=== PATIENT | male | born 1945 | race African-American/Black ===

== ENCOUNTER 2024-05-08 11:10 | Emergency (ER) | payer OTHER, MEDICAID ==
[~2024-05-08] VITALS: Ht 170.2 cm; Wt 50.4 kg
[2024-05-08 11:16] VITALS: O2SAT 96
[2024-05-08 12:27] LABS: BASOPHILS % 0.6 % (0.0-2.0); EOSINOPHILS % 2.9 % (0.0-5.0); HEMATOCRIT. 31.8 % (42.0-52.0); HEMOGLOBIN. 10.6 g/dL (14.0-18.0); LYMPHOCYTES % 21.9 % (20.0-50.0); MEAN CORPUSCULAR HEMOGLOBIN 28.7 pg (28.0-32.0); MEAN CORPUSCULAR HGB CONC 33.4 g/dL (31.0-37.0); MEAN PLATELET VOLUME 7.2 fl (7.4-10.4); MONOCYTES % 11.5 % (2.0-8.0); NEUTROPHILS % 63.1 % (40.0-76.0); PLATELET 384 x1000/uL (130-400); RED CELL DISTRIBUTION WIDTH 14.7 % (11.6-14.6); WHITE BLOOD COUNT 7.2 x1000/uL (4.5-11.0)
[2024-05-08 12:38] LABS: CHLORIDE 101 mEq/L (98-107); POTASSIUM 4.4 mEq/L (3.5-5.1); SODIUM 133 mEq/L (136-145)
[2024-05-08 12:39] LABS: CARBON DIOXIDE 30 mEq/L (21-32)
[2024-05-08 12:40] LABS: CALCIUM 9.1 mg/dL (8.7-10.4)
[2024-05-08 12:41] LABS: PARTIAL THROMBOPLASTIN TIME 26.6 sec (23.4-31.0)
[2024-05-08 12:44] LABS: UREA NITROGEN BLOOD 18 mg/dL (9-23)
[2024-05-08 12:45] LABS: TROPONIN I HIGH SENSITIVITY 4 ng/L (3.0-53)
[2024-05-08 13:36] LABS: ETHANOL BLOOD < 10 mg/dL (<10); GLUCOSE 391 mg/dL (70-105)
[2024-05-08] MEDS: SODIUM CHLORIDE 0.9% 1,000 ML IV ONE (13:45)
[2024-05-08 14:10] LABS: TROPONIN I HIGH SENSITIVITY 4 ng/L (3.0-53)
[2024-05-08 14:14] LABS: CLARITY URINE TURBID (CLEAR); COLOR URINE YELLOW (YELLOW); GLUCOSE URINE 3+ (NEGATIVE); KETONES URINE NEGATIVE (NEGATIVE); LEUKOCYTE ESTERASE URINE 2+ (NEGATIVE); NITRITE URINE NEGATIVE (NEGATIVE); OCCULT BLOOD URINE 1+ (NEGATIVE); PROTEIN URINE 1+ (NEGATIVE); SPECIFIC GRAVITY URINE 1.023 (1.005-1.030); UROBILINOGEN URINE 0.2 E.U./dL (0.2-1.0)
[2024-05-08] MEDS: INSULIN REGULAR (HUMULIN R) 1000UNITS/10ML VIAL SUBCUT ONE (14:15)
[2024-05-08 14:24] LABS: BACTERIA URINE 4+; RBC URINE 0-2 /hpf (0-2); WBC URINE TNTC /hpf (0-2); YEAST URINE NONE SEEN
[2024-05-08 14:25] LABS: SQUAMOUS EPITHELIAL CELL URINE RARE /lpf (RARE/1+)
[2024-05-08 14:32] LABS: *AMPHETAMINES SCREEN URINE NEGATIVE (NEGATIVE)
[2024-05-08 14:33] LABS: *BARBITURATES SCREEN URINE NEGATIVE (NEGATIVE); *BENZODIAZEPINES SCREEN URINE NEGATIVE (NEGATIVE); *COCAINE SCREEN URINE PRESUMPTIVE POSITIVE (NEGATIVE); CANNABINOID URINE SCREEN NEGATIVE (NEGATIVE); ECSTASY MDMA SCREEN URINE NEGATIVE (NEGATIVE); METHADONE URINE SCREEN NEGATIVE (NEGATIVE); OPIATES URINE SCREEN NEGATIVE (NEGATIVE); PHENCYCLIDINE URINE SCREEN NEGATIVE (NEGATIVE)
[2024-05-08] MEDS: PIPERACILLIN/TAZO 3.375G/50ML 50 ML IV STA (15:01)
[2024-05-08] MEDS ORDERED: IPRATROPIUM/ALBUTEROL 0.5-3(2.5)MG/3ML NEB HHN PRN (16:30)
[2024-05-08] MEDS ORDERED: ACETAMINOPHEN 325MG TABLET PO PRN ×2 (16:30)
[2024-05-08] MEDS ORDERED: DOCUSATE SODIUM 100MG CAPSULE PO PRN (16:30)
[2024-05-08] MEDS ORDERED: GUAIFENESIN 200MG/10ML SUGAR FREE UDC PO PRN (16:30)
[2024-05-08] MEDS ORDERED: DEXTROSE 50% WATER 50ML SYRINGE IV PRN (16:30)
[2024-05-08] MEDS ORDERED: ONDANSETRON HCL 4MG/2ML INJ IV PRN (16:30)
[2024-05-08] MEDS ORDERED: MAGNESIUM/ALUMINUM HYDROXIDE/SIMETHICONE 30ML UDC PO PRN (16:30)
[2024-05-08] MEDS ORDERED: CLONIDINE 0.1MG TABLET PO PRN (16:30)
[2024-05-08 16:52] LABS: LDL CHOLESTEROL 66 mg/dL (5-100); TRIGLYCERIDE 48 mg/dL (0-150)
[2024-05-08 16:53] LABS: ALANINE AMINOTRANSFERASE 8 IU/L (10-49); ALBUMIN 3.4 g/dL (3.2-4.8); ASPARTATE AMINOTRANSFERASE 14 IU/L (<34); BILIRUBIN DIRECT 0.1 mg/dL (<=3.0); CHOLESTEROL 117 mg/dL (<200); HDL CHOLESTEROL 40 mg/dL (>55)
[2024-05-08 16:54] LABS: BILIRUBIN TOTAL 0.5 mg/dL (0.1-1.0); PROTEIN TOTAL 7.7 g/dL (6.0-8.3)
[2024-05-08 16:56] LABS: T4 FREE 0.93 ng/dL (0.89-1.76); THYROID STIMULATING HORMONE 2.54 uIU/mL (0.55-4.78)
[2024-05-08] MEDS ORDERED: CEFTRIAXONE 1GM/50ML 50 ML IV SCH (17:00)
[2024-05-08] MEDS ORDERED: SODIUM CHLORIDE 0.9% 1,000 ML IV SCH (17:00)
[2024-05-08] MEDS ORDERED: BLOOD SUGAR DIAGNOSTIC STRIP TEST SCH (17:00)
[2024-05-08] MEDS ORDERED: ENOXAPARIN 40MG/0.4ML SYR SUBCUT SCH (17:00)
[2024-05-08 18:04] VITALS: BP 145/95; PULSE 98; RESP 16; TEMP 36.78072; O2SAT 100
[2024-05-08] MEDS ORDERED: INSULIN LISPRO 100 UNITS/ML SUBCUT SCH (18:20)
== END 2024-05-08 18:06 | disposition short-term general hospital (02) ==
LOC: ER 11:13 → EDBEDREQ 14:44 → CANBEDREQ 15:04 → ER 18:06
DX: E78.5 Hyperlipidemia, unspecified (principal); E11.9 Type 2 diabetes mellitus without complications; R55 Syncope and collapse; N39.0 Urinary tract infection, site not specified; E11.65 Type 2 diabetes mellitus with hyperglycemia; F19.90 Other psychoactive substance use, unspecified, uncomplicated; Z85.46 Personal history of malignant neoplasm of prostate
CPT/HCPCS: 80061; 80076; 80305; 80048; 81003; 82010; 80320; 82962; 83036; 83880; 84439; 83605; 83690; 84443; 85025; 85610; 85730; 87086; 87186; 84484; 87077; 36415; 84145; 71045; 70450; 93005; 96360; 99291; J1815; J2543; J7030; G0480

== ENCOUNTER 2024-09-01 09:15 | Emergency (ER) | payer OTHER, MEDICAID ==
[~2024-09-01] VITALS: Ht 182.9 cm; Wt 35.0 kg
[2024-09-01 09:17] VITALS: O2SAT 97
[2024-09-01 09:45] LABS: BASOPHILS % 0.2 % (0.0-2.0); EOSINOPHILS % 0.2 % (0.0-5.0); HEMATOCRIT. 31.2 % (42.0-52.0); HEMOGLOBIN. 10.1 g/dL (14.0-18.0); LYMPHOCYTES % 7.7 % (20.0-50.0); MEAN CORPUSCULAR HEMOGLOBIN 27.3 pg (28.0-32.0); MEAN CORPUSCULAR HGB CONC 32.3 g/dL (31.0-37.0); MEAN CORPUSCULAR VOLUME 84.7 fL (80.0-94.0); MEAN PLATELET VOLUME 6.8 fl (7.4-10.4); MONOCYTES % 6.4 % (2.0-8.0); NEUTROPHILS % 85.5 % (40.0-76.0); PLATELET 525 x1000/uL (130-400); RED BLOOD CELL COUNT 3.68 mill/uL (4.7-6.1); RED CELL DISTRIBUTION WIDTH 15.3 % (11.6-14.6); WHITE BLOOD COUNT 12.1 x1000/uL (4.5-11.0)
[2024-09-01 09:49] LABS: CHLORIDE 100 mEq/L (98-107); POTASSIUM 4.8 mEq/L (3.5-5.1); SODIUM 134 mEq/L (136-145)
[2024-09-01 09:50] LABS: CALCIUM 9.3 mg/dL (8.7-10.4); CARBON DIOXIDE 27 mEq/L (21-32)
[2024-09-01 09:55] LABS: CREATININE 0.9 mg/dL (0.6-1.3); UREA NITROGEN BLOOD 32 mg/dL (9-23)
[2024-09-01 09:57] LABS: ETHANOL BLOOD < 10 mg/dL (<10); GLUCOSE 137 mg/dL (70-105)
[2024-09-01 10:00] LABS: TROPONIN I HIGH SENSITIVITY < 4 ng/L (3.0-53)
[2024-09-01] MEDS: SODIUM CHLORIDE 0.9% 1,000 ML IV ONE (10:00)
[2024-09-01 14:09] VITALS: TEMP 36.44736
[2024-09-01 14:49] VITALS: BP 124/86; PULSE 98; RESP 16; O2SAT 98
== END 2024-09-01 15:20 | disposition short-term general hospital (02) ==
LOC: ER 09:15 → CANBEDREQ 15:06 → ER 15:20
DX: E11.649 Type 2 diabetes mellitus with hypoglycemia without coma (principal); F14.10 Cocaine abuse, uncomplicated; F12.10 Cannabis abuse, uncomplicated
CPT/HCPCS: 80048; 80320; 82962; 85025; 84484; 36415; 71045; 70450; 96360; 96361; 99285; J7030; G0480